=== PATIENT | male | born 1975 | race Caucasian/White ===

== ENCOUNTER 2018-01-25 23:12 | Emergency (ER) | payer BC ==
[2018-01-26] MEDS: TETRACAINE 0.5% OPHTH SOLN 4ML OD (00:45)
[2018-01-26] MEDS: FLUORESCEIN OPHTH 1 MG STRIP OD (00:45)
[2018-01-26] MEDS: ERYTHROMYCIN OPHTH OINT OD (01:00)
== END 2018-01-26 01:16 | disposition home or self-care (01) ==
LOC: M ED 23:12
DX: S05.01XA Injury of conjunctiva and corneal abrasion without foreign body, right eye, initial encounter (principal); W60.XXXA Contact with nonvenomous plant thorns and spines and sharp leaves, initial encounter; Y93.29 Activity, other involving ice and snow
CPT/HCPCS: 99283

== ENCOUNTER 2018-01-26 05:56 | Emergency (ER) | payer BC ==
[2018-01-26] MEDS: TETRACAINE 0.5% OPHTH SOLN 4ML XX (06:57)
[2018-01-26] MEDS: NORCO 5/325MG TABLET (BULK FOR ED) PO (07:14)
[2018-01-26] MEDS: KETOROLAC 0.5% OPHTH SOLN OD (07:14)
== END 2018-01-26 07:17 | disposition home or self-care (01) ==
LOC: M ED 05:56
DX: S05.01XA Injury of conjunctiva and corneal abrasion without foreign body, right eye, initial encounter (principal); W22.8XXA Striking against or struck by other objects, initial encounter; Y92.89 Other specified places as the place of occurrence of the external cause; Z88.1 Allergy status to other antibiotic agents
CPT/HCPCS: 99283

== ENCOUNTER 2021-07-26 09:27 | Emergency (ER) | payer BC ==
[~2021-07-26] VITALS: Ht 170.2 cm; Wt 84.1 kg
[~2021-07-26 09:27] MED LIST: ERYTOIN8; ERYTOIN8 OD; KETO0.5S2 OD
[2021-07-26] MEDS ORDERED: ACETAMINOPHEN 325 MG TAB PO ONE (10:10)
[2021-07-26] MEDS ORDERED: NS 500 ML IV ONE (10:10)
[2021-07-26] MEDS ORDERED: ONDANSETRON 4MG/2ML VIAL IV ONE (10:20)
[2021-07-26 10:46] LABS: BASO % 0.2 % (0.0-1.0); HEMOGLOBIN 17.3 g/dl (13.5-17.5); LYMPH % 21.3 % (24.0-44.0); MEAN CORPUSCULAR HEMOGLOBIN 30.8 pg (27.0-33.0); MEAN CORPUSCULAR HGB CONC 34.6 g/dl (32.0-36.5); MEAN CORPUSCULAR VOLUME 89.1 fl (80.0-96.0); MONO # 0.4 10^3/uL (0.0-0.8); NEUTROPHILS # 3.3 10^3/uL (1.5-8.5); NEUTROPHILS % 68.5 % (36.0-66.0); PLATELET COUNT, AUTOMATED 139 10^3/uL (150-450); RED BLOOD COUNT 5.61 10^6/uL (4.30-6.10); WHITE BLOOD COUNT 4.9 10^3/uL (4.0-10.0)
[2021-07-26 10:56] LABS: INR 0.95
[2021-07-26 10:57] LABS: PARTIAL THROMBOPLASTIN TIME 34.1 SECONDS (25.9-37.0)
--- NOTE | 2021-07-26 10:57 | REP ---
INDICATION: Coronavirus workup. COMPARISON: None. TECHNIQUE: Upright AP portable chest image was obtained. FINDINGS: There is peripheral airspace consolidation in the lower lobe of the right lung. The left lung is clear. There are no pleural effusions. The heart borders and mediastinum are normal. The upper abdominal bowel gas pattern is normal. There are no significant bony abnormalities of the chest. IMPRESSION: Appearance consistent with a right lower lobe lobar bacterial pneumonia. While not excluded this is not a typical appearance for COVID related pneumonia. <Electronically signed by Charbel Smith > 07/26/21 [id number]
[2021-07-26 11:00] LABS: D-DIMER QUANT 1614.13 ng/ml (<500)
[2021-07-26 11:12] LABS: ALBUMIN 3.4 GM/DL (3.2-5.2); ALT/SGPT 32 U/L (12-78); BILIRUBIN,TOTAL 0.5 MG/DL (0.2-1.0); BLOOD UREA NITROGEN 18 MG/DL (7-18); C REACTIVE PROTEIN QUANTITATIV 1.93 MG/DL (0.00-0.30); CALCIUM LEVEL 8.2 MG/DL (8.5-10.1); CARBON DIOXIDE LEVEL 27 MEQ/L (21-32); CHLORIDE LEVEL 101 MEQ/L (98-107); CK-MB VALUE MASS < 1.0 NG/ML (<3.6); CPK CREATINE PHOSPHOKINASE 159 U/L (39-308); CREATININE FOR GFR 1.46 MG/DL (0.70-1.30); FERRITIN 961 NG/ML (26-388); GLOMERULAR FILTRATION RATE 55.3 (>60); GLUCOSE, FASTING 86 MG/DL (70-100); LDH LACTATE DEHYDROGENASE 340 U/L (87-241); MB/CK RELATIVE INDEX 0.63 (< OR =4); POTASSIUM SERUM 4.3 MEQ/L (3.5-5.1); SODIUM LEVEL 135 MEQ/L (136-145); TOTAL PROTEIN 7.9 GM/DL (6.4-8.2); TROPONIN I < 0.02 NG/ML (< 0.10)
[2021-07-26] MEDS ORDERED: ISOVUE-370 76% 100ML VIAL As Ordered ONE (11:32)
--- NOTE | 2021-07-26 12:42 | REP ---
INDICATION: COVID, sob. COMPARISON: None. TECHNIQUE: Imaging protocol: CT angiography of the chest with IV contrast. Contiguous 3 mm thick axial projection images were obtained through the chest. 2D sagittal and coronal reconstructions were performed. Radiation optimization: All CT scans at this facility use at least one of these dose optimization techniques: automated exposure control; mA and/or kV adjustment per patient size (includes targeted exams where dose is matched to clinical indication); or iterative reconstruction. CONTRAST: 75 cc of Isovue 370 IV. FINDINGS: Lower neck: The thyroid gland is normal. There is no supraclavicular lymphadenopathy. Mediastinum: There are multiple reactive mediastinal and right hilar lymph nodes. Heart/thoracic aorta/pulmonary arterial tree: The heart size is upper limits of normal. There is no pericardial effusion. There is no thoracic aortic aneurysm or aortic dissection. There are no filling defects in the pulmonary arterial tree. Upper abdomen: There are cortical scars in the upper pole of both kidneys. There is a benign splenule in the splenic hilum. Thoracic esophagus: Normal. Chest wall and axilla: The soft tissues of the chest wall appear normal. There is no axillary lymphadenopathy. There are Schmorl's nodes in the vertebral endplates of multiple mid and lower thoracic vertebral bodies. There is associated irregularity and narrowing of the intervertebral disc spaces. Lung parenchyma: There is peripheral and peribronchial airspace consolidation in the upper middle and lower lobes of the right lung and the upper lobe of the left lung consistent with COVID related pneumonia. There are no pleural effusions. IMPRESSION: 1. Multifocal peripheral and peribronchial airspace consolidation in both lungs consistent with COVID related pneumonia. 2. There are reactive mediastinal and right hilar lymph nodes. 3. No evidence of pulmonary emboli. <Electronically signed by Charbel Smith > 07/26/21 [id number]
[2021-07-26] MEDS ORDERED: DOXY-342 PO (13:08)
[2021-07-26] MEDS ORDERED: PROAAER10 INH (13:09)
[2021-07-26] MEDS ORDERED: NS 1,000 ML IV ONE (13:15)
[2021-07-26] MEDS ORDERED: HOME MED LIST COMPLETE! XX SCH (13:30)
[2021-07-26 13:31] VITALS: BP 115/68
--- NOTE | 2021-07-26 17:30 | ECGEPIP ---
[facility] - ED Test Date: 2021-07-26 Pat Name: FRANKO HAYES Department: Room: - Gender: Male [employer]: CHULA : 1975 Requested By: Evelina Cabrera Order Number: [id number] Reading MD: Elver Umanzor Measurements Intervals Kirkman Rate: 86 P: 44 MO: 168 QRS: 48 QRSD: 88 T: 23 QT: 354 QTc: 423 Interpretive Statements Normal sinus rhythm Comparison tracing not on file Electronically Signed on 07-26-2021 17:30:07 EDT by Elver Umanzor
== END 2021-07-26 13:48 | disposition home or self-care (01) ==
LOC: M ED 09:27
DX: J12.82 Pneumonia due to coronavirus disease 2019 (principal); R50.9 Fever, unspecified; Z88.1 Allergy status to other antibiotic agents; Z79.899 Other long term (current) drug therapy
CPT/HCPCS: 71045; 71275; 80053; 82550; 82553; 82728; 83605; 83615; 83735; 84145; 84484; 85025; 85379; 85384; 85610; 85730; 86140; 87040; 87798; 93005; 96361; 96374; 99284; J2405; Q9967

== ENCOUNTER → 2021-09-21 | Outpatient (REF) | payer BC ==
[~2021-09-21] MED LIST changes: +DOXY-342 PO; +PROAAER10 INH
[2021-09-21 13:32] LABS: BASO # 0.1 10^3/uL (0.0-0.2); BASO % 1.1 % (0.0-1.0); EOS # 0.2 10^3/uL (0.0-0.5); EOS % 2.4 % (0.0-3.0); HEMATOCRIT 48.5 % (42.0-52.0); HEMOGLOBIN 16.4 g/dl (13.5-17.5); LYMPH # 1.5 10^3/uL (1.5-5.0); LYMPH % 23.1 % (24.0-44.0); MEAN CORPUSCULAR HEMOGLOBIN 30.7 pg (27.0-33.0); MEAN CORPUSCULAR HGB CONC 33.8 g/dl (32.0-36.5); MEAN CORPUSCULAR VOLUME 90.8 fl (80.0-96.0); MONO # 0.6 10^3/uL (0.0-0.8); MONO % 8.8 % (2.0-8.0); PLATELET COUNT, AUTOMATED 291 10^3/uL (150-450); RED BLOOD COUNT 5.34 10^6/uL (4.30-6.10); WHITE BLOOD COUNT 6.3 10^3/uL (4.0-10.0)
[2021-09-21 14:32] LABS: ALBUMIN 3.9 GM/DL (3.2-5.2); ALT/SGPT 34 U/L (12-78); BILIRUBIN,TOTAL 0.6 MG/DL (0.2-1.0); BLOOD UREA NITROGEN 18 MG/DL (7-18); CALCIUM LEVEL 9.3 MG/DL (8.5-10.1); CARBON DIOXIDE LEVEL 25 MEQ/L (21-32); CHLORIDE LEVEL 104 MEQ/L (98-107); CHOLESTEROL LEVEL 289 MG/DL (<200); CREATININE FOR GFR 1.18 MG/DL (0.70-1.30); GLOMERULAR FILTRATION RATE > 60.0 (>60); GLUCOSE, FASTING 99 MG/DL (70-100); HDL CHOLESTEROL 71 MG/DL (>40); LDL CHOLESTEROL 200 MG/DL (<100); NON-HDL-C 218 MG/DL; POTASSIUM SERUM 4.9 MEQ/L (3.5-5.1); SODIUM LEVEL 139 MEQ/L (136-145); TOTAL 25(OH) VITAMIN D 28.4 NG/ML (30.0-100.0); TOTAL PROTEIN 7.9 GM/DL (6.4-8.2); TRIGLYCERIDES LEVEL 91 MG/DL (<150)
== END ==
LOC: M SFHCADAM 07:51
PROVIDERS: ATTEND Physician Assistant Medical
DX: Z00.00 Encounter for general adult medical examination without abnormal findings (principal); K21.9 Gastro-esophageal reflux disease without esophagitis; K63.5 Polyp of colon; N52.9 Male erectile dysfunction, unspecified; F41.9 Anxiety disorder, unspecified; R35.1 Nocturia

== ENCOUNTER → 2022-01-06 | Outpatient (CLI) | payer BC ==
[~2022-01-06] MED LIST changes: +BUSP10TA PO; +FINA5TAB2 PO
== END ==
LOC: M LABSMTC 10:50
PROVIDERS: ATTEND Anesthesiology
DX: Z01.818 Encounter for other preprocedural examination (principal); Z11.52 Encounter for screening for COVID-19

== ENCOUNTER 2022-01-11 09:17 | Day surgery (SDC) | payer BC ==
[~2022-01-11] VITALS: Ht 170.2 cm; Wt 89.6 kg
[~2022-01-11 09:17] MED LIST changes: +NS 1,000 ML IV ONE
[2022-01-11] MEDS ORDERED: LIDOCAINE 2% 100MG/5ML SDV (FOR ANES.) As Ordered ONE (09:45)
[2022-01-11] MEDS ORDERED: propofoL 200 MG/20 ML VIAL As Ordered ONE ×2 (09:45→11:02)
[2022-01-11 11:25] VITALS: BP 124/92
== END 2022-01-11 11:43 | disposition home or self-care (01) ==
LOC: M OPP 09:17
PROVIDERS: ATTEND Internal Medicine Gastroenterology
DX: Z12.11 Encounter for screening for malignant neoplasm of colon (principal); Z86.010 Personal history of colon polyps; K64.8 Other hemorrhoids; F41.9 Anxiety disorder, unspecified; F32.A Depression, unspecified; F17.220 Nicotine dependence, chewing tobacco, uncomplicated; N40.0 Benign prostatic hyperplasia without lower urinary tract symptoms; Z88.1 Allergy status to other antibiotic agents; Z79.899 Other long term (current) drug therapy

== ENCOUNTER → 2022-04-12 | Outpatient (REF) | payer BC ==
[~2022-04-12] MED LIST changes: -NS 1,000 ML IV ONE
== END ==
LOC: M SFHCADAM 08:06
PROVIDERS: ATTEND Physician Assistant Medical
DX: N40.1 Benign prostatic hyperplasia with lower urinary tract symptoms (principal)

== ENCOUNTER → 2023-05-16 | Outpatient (REF) | payer BC ==
[~2023-05-16] MED LIST changes: -DOXY-342 PO; +DOXY100C82 PO
[2023-05-16 13:40] LABS: ALBUMIN 4.2 G/DL (3.2-5.2); ALKALINE PHOSPHATASE 79 U/L (46-116); ALT/SGPT 33 U/L (7.0-40); AST/SGOT 24 U/L (<34); BILIRUBIN,TOTAL 0.9 MG/DL (0.3-1.2); BLOOD UREA NITROGEN 19 MG/DL (9-23); CALCIUM LEVEL 9.5 MG/DL (8.5-10.1); CARBON DIOXIDE LEVEL 31 MMOL/L (20-31); CHLORIDE LEVEL 102 MMOL/L (98-107); CHOLESTEROL LEVEL 283 MG/DL (<200); CHOLESTEROL RISK RATIO 4.22 (<5); GLOMERULAR FILTRATION RATE > 60.0 (>60); GLUCOSE, FASTING 92 MG/DL (60-100); POTASSIUM SERUM 4.5 MMOL/L (3.5-5.1); SODIUM LEVEL 138 MMOL/L (136-145); THYROID STIMULATING HORMONE 2.767 uIU/ML (0.55-4.78); TOTAL PROTEIN 7.9 G/DL (5.7-8.2); TRIGLYCERIDES LEVEL 260 MG/DL (<150)
[2023-05-16 13:41] LABS: TOTAL 25(OH) VITAMIN D 31.3 NG/ML (20.0-100.0)
== END ==
LOC: M SFHCADAM 09:01
PROVIDERS: ATTEND Physician Assistant Medical
DX: N40.1 Benign prostatic hyperplasia with lower urinary tract symptoms (principal); N52.9 Male erectile dysfunction, unspecified; F41.9 Anxiety disorder, unspecified; E78.2 Mixed hyperlipidemia
CPT/HCPCS: 80053; 80061; 82306; 84443; G0103

== ENCOUNTER → 2024-03-12 | Outpatient (CLI) | payer BC | LOC: M ADAMS 08:33 | PROVIDERS: ATTEND Physician Assistant Medical | DX: M25.511 Pain in right shoulder (principal); R20.2 Paresthesia of skin ==